=== PATIENT | male | born 1950 | race Caucasian/White ===

== ENCOUNTER → 2020-09-27 | Outpatient (CLI) | payer MEDICARE, MEDICAID ==
[~2020-09-27] MED LIST: AMLO-489 PO; ATEN-60 PO; DICL50TA2 PO; ENAL20TA8 PO; GLIP5TAB12 PO; HYDR25TA4 PO; METF500T PO; METO-158 PO; OMEP20CA74 OR; SIMV-8 PO; TAMS0.4C36 PO
== END | disposition home or self-care (01) ==
LOC: Rad HDHVI 07:58
PROVIDERS: ATTEND Internal Medicine Cardiovascular Disease
DX: I11.9 Hypertensive heart disease without heart failure (principal); R07.89 Other chest pain
CPT/HCPCS: 93306

== ENCOUNTER → 2020-10-01 | Outpatient (CLI) | payer MEDICARE, MEDICAID ==
[~2020-10-01] VITALS: Ht 177.8 cm; Wt 97.5 kg
[~2020-10-01] MED LIST changes: +ADENOSINE 82 MG in GIVE UN-DILUTED 0 ML IV ONE; +ADENOSINE 90 MG/30 ML INJ IV ONE
== END | disposition home or self-care (01) ==
LOC: Rad HDHVI 14:03
PROVIDERS: ATTEND Internal Medicine Cardiovascular Disease
DX: Z01.810 Encounter for preprocedural cardiovascular examination (principal); I10 Essential (primary) hypertension; I25.10 Atherosclerotic heart disease of native coronary artery without angina pectoris; E78.5 Hyperlipidemia, unspecified; E11.9 Type 2 diabetes mellitus without complications; J44.9 Chronic obstructive pulmonary disease, unspecified; F17.210 Nicotine dependence, cigarettes, uncomplicated
CPT/HCPCS: 78452; 93005; 96374; 96375; A9500; J0153

== ENCOUNTER → 2023-12-08 | Outpatient (CLI) | payer MEDICARE, MEDICAID ==
[~2023-12-08] MED LIST changes: -ADENOSINE 82 MG in GIVE UN-DILUTED 0 ML IV ONE; -ADENOSINE 90 MG/30 ML INJ IV ONE; -AMLO-489 PO; +AMLO1TAB22 PO; +ENAL1TAB48 PO; -ENAL20TA8 PO; -GLIP5TAB12 PO; +GLIP5TAB21 PO; -SIMV-8 PO; +SIMV20TA20 PO
== END | disposition home or self-care (01) ==
LOC: Rad HDHVI 13:46
PROVIDERS: ATTEND Internal Medicine Cardiovascular Disease
DX: I08.8 Other rheumatic multiple valve diseases (principal); I11.9 Hypertensive heart disease without heart failure; R06.02 Shortness of breath
CPT/HCPCS: 93306

== ENCOUNTER → 2023-12-20 | Outpatient (CLI) | payer MEDICARE, MEDICAID ==
[~2023-12-20] VITALS: Ht 177.8 cm; Wt 94.3 kg
[~2023-12-20] MED LIST changes: +ADENOSINE 79 MG in GIVE UN-DILUTED 0 ML IV ONE; +ADENOSINE 90 MG/30 ML INJ IV ONE
== END | disposition home or self-care (01) ==
LOC: Rad HDHVI 09:18
PROVIDERS: ATTEND Internal Medicine Cardiovascular Disease
DX: I49.3 Ventricular premature depolarization (principal); I49.1 Atrial premature depolarization; I10 Essential (primary) hypertension; R06.02 Shortness of breath; E78.5 Hyperlipidemia, unspecified; I25.10 Atherosclerotic heart disease of native coronary artery without angina pectoris; E11.9 Type 2 diabetes mellitus without complications; F17.210 Nicotine dependence, cigarettes, uncomplicated
CPT/HCPCS: 78452; 93005; 96374; 96375; A9500; J0153

== ENCOUNTER → 2024-01-31 | Outpatient (CLI) | payer MEDICARE, MEDICAID ==
[~2024-01-31] MED LIST changes: -ADENOSINE 79 MG in GIVE UN-DILUTED 0 ML IV ONE; -ADENOSINE 90 MG/30 ML INJ IV ONE; -TAMS0.4C36 PO; +TAMS0.4C39 PO
[2024-01-31 11:40] VITALS: BP 130/80; PULSE 80; RESP 18; O2SAT 94
[2024-01-31] MEDS: BUMETANIDE 2.5mg/10ml (0.25 mg/ml) INJ IV ONE (11:40)
[2024-01-31] MEDS: POTASSIUM CHL 20 Meq TABLET PO ONE ×2 (11:40→11:57)
[2024-01-31] MEDS: BUMETANIDE INJECTION 10 ML ONE (11:57)
[2024-01-31 12:30] VITALS: BP 131/71; PULSE 78; RESP 18; O2SAT 94
== END | disposition home or self-care (01) ==
LOC: CHF HDHVI 11:43
PROVIDERS: ATTEND Internal Medicine Cardiovascular Disease
DX: R60.9 Edema, unspecified (principal); I25.10 Atherosclerotic heart disease of native coronary artery without angina pectoris; I10 Essential (primary) hypertension; E78.5 Hyperlipidemia, unspecified; E11.9 Type 2 diabetes mellitus without complications; F17.210 Nicotine dependence, cigarettes, uncomplicated
CPT/HCPCS: 96374; G0463

== ENCOUNTER → 2024-02-21 | Outpatient (CLI) | payer MEDICARE, MEDICAID ==
[~2024-02-21] MED LIST changes: +ASPI-543 PO; +BUME2TAB5 PO; +DAPA1TAB4 PO; +FINA5TAB4 PO; +METF-370 PO; +POTA-180 PO; +ROSU20TA14 PO
[2024-02-21 10:40] VITALS: BP 109/69; PULSE 84; RESP 16; O2SAT 93
[2024-02-21 11:00] VITALS: BP 107/65; PULSE 84; RESP 18; O2SAT 91
== END | disposition home or self-care (01) ==
LOC: Rad HDHVI 10:37
PROVIDERS: ATTEND Internal Medicine Cardiovascular Disease
DX: Z01.811 Encounter for preprocedural respiratory examination (principal); I25.5 Ischemic cardiomyopathy; I50.23 Acute on chronic systolic (congestive) heart failure; R06.02 Shortness of breath; R07.89 Other chest pain
CPT/HCPCS: 71046; 93005; G0463

== ENCOUNTER 2024-02-24 06:58 | Day surgery (SDC) | payer MEDICARE, MEDICAID ==
[2024-02-21 13:01] LABS: Basophils # (auto) 0.1 10 ^3/uL (0-0.2); Eosinophils # (auto) 0.4 10 ^3/uL (0-0.8); Eosinophils % (auto) 3.2 % (0.0-7.0); Mean Corpuscular Volume 79.1 fL (80.0-100.0)
[2024-02-21 13:04] LABS: Basophils % (auto) 1.1 % (0.0-2.0); Hematocrit 40.6 % (41.0-53.0); Hemoglobin 13.8 g/dL (13.5-17.5); Lymphocytes # (auto) 3.5 10 ^3/uL (0.4-5.4); Lymphocytes % (auto) 31.1 % (10.0-50.0); Mean Corpuscular Hemoglobin 26.9 pg (28.0-32.0); Mean Corpuscular Hgb Conc. 34.1 g/dL (32.0-36.0); Monocytes # (auto) 0.7 10 ^3/uL (0-1.3); Monocytes % (auto) 6.2 % (0.0-12.0); Neutrophils # (auto) 6.6 10 ^3/uL (1.6-8.6); Neutrophils % (auto) 58.4 % (37.0-80.0); Platelet Count (auto) 312 10^3/uL (140-450); Red Blood Cells 5.13 10^6/uL (4.5-5.90); Red Cell Distribution Width 14.9 % (11.8-14.3); White Blood Cell 11.2 10^3/uL (4.4-10.8)
[2024-02-21 13:17] LABS: INR 1.1 (0.9-1.15); Partial Thromboplastin Time 27.9 SEC (24.5-34.5); Prothrombin Time 11.6 sec (9.3-11.8)
[2024-02-21 14:08] LABS: Alanine Aminotransferase 25 U/L (7-40); Albumin 4.7 g/dL (3.2-4.8); Alkaline Phosphatase 80 U/L (46-116); Anion Gap 8 (5-15); Aspartate Aminotransferase 17 U/L (13-40); BUN/Creatinine Ratio 12.7 (10.0-20.0); Bilirubin, Total 0.3 mg/dL (0.2-1.0); Blood Urea Nitrogen 16 mg/dL (9-23); Calcium 9.3 mg/dL (8.7-10.4); Carbon Dioxide 30 mmol/L (20-30); Chloride 103 mmol/L (98-107); Glucose 124 mg/dL (74-106); Potassium 4.4 mmol/L (3.5-5.1); Sodium 141 mmol/L (136-145)
[2024-02-21 14:09] LABS: Total Protein 7.1 g/dL (5.7-8.2)
[~2024-02-24] VITALS: Ht 177.8 cm; Wt 98.9 kg
[2024-02-24] VITALS (9 sets, daily range): BP systolic 116–150; BP diastolic 62–87; PULSE 77–88; RESP 11–26; TEMP 97.4; O2SAT 93–97
[~2024-02-24 06:58] MED LIST changes: -HYDR25TA4 PO; -METO-158 PO; -SIMV20TA20 PO
[2024-02-24] MEDS ORDERED: IOHEXOL 300 MG/ML 100ML BOTTLE IJ ONE (06:59)
[2024-02-24] MEDS ORDERED: HEPARIN IN NS 1000Units/500mL 1,500 ML ONE (07:27)
[2024-02-24] MEDS ORDERED: MIDAZOLAM HCL 2MG/2ML 2ml VIAL (1mg/ml) ONE (08:26)
[2024-02-24] MEDS ORDERED: SODIUM CHL 0.9% 50 ML ONE (08:26)
[2024-02-24] MEDS ORDERED: fentaNYL CITRATE 100 MCG/2 ML VL ONE (08:26)
[2024-02-24] MEDS ORDERED: ANGIOMAX 250 MG VIAL IV ONE (08:26)
[2024-02-24] MEDS ORDERED: LIDOCAINE 2%HCL (LOCAL ANESTH.) INJ 20ML MDV ONE (08:26)
[2024-02-24] MEDS ORDERED: CLOPIDOGREL BISULFATE 75 MG TAB ONE (09:31)
== END 2024-02-24 12:30 | disposition home or self-care (01) ==
LOC: CATH 06:58
PROVIDERS: ATTEND Internal Medicine Cardiovascular Disease
DX: R06.02 Shortness of breath (principal); I25.10 Atherosclerotic heart disease of native coronary artery without angina pectoris; F17.210 Nicotine dependence, cigarettes, uncomplicated; Z79.82 Long term (current) use of aspirin; Z88.8 Allergy status to other drugs, medicaments and biological substances; Z79.899 Other long term (current) drug therapy
CPT/HCPCS: 36415; 80053; 85025; 85610; 85730; 92972; 93460; C1760; C1761; C1769; C1874; C1894; C9602; J0583; J1644; J2250; J3010; J7030; Q9967; 99152

== ENCOUNTER → 2024-03-23 | Outpatient (CLI) | payer MEDICARE, MEDICAID | END | disposition home or self-care (01) | LOC: Rad HDHVI 07:59 | PROVIDERS: ATTEND Internal Medicine Cardiovascular Disease | DX: I10 Essential (primary) hypertension (principal); R07.9 Chest pain, unspecified | CPT/HCPCS: 93306 ==

== ENCOUNTER → 2024-09-13 | Outpatient (CLI) | payer MEDICARE, MEDICAID ==
[~2024-09-13] VITALS: Ht 177.8 cm; Wt 90.7 kg
[~2024-09-13] MED LIST changes: +ADENOSINE 76 MG in GIVE UN-DILUTED 0 ML IV ONE; +ADENOSINE 90 MG/30 ML INJ IV ONE
== END | disposition home or self-care (01) ==
LOC: Rad HDHVI 08:21
PROVIDERS: ATTEND Internal Medicine Cardiovascular Disease
DX: I49.1 Atrial premature depolarization (principal); I49.3 Ventricular premature depolarization; I25.10 Atherosclerotic heart disease of native coronary artery without angina pectoris; I11.0 Hypertensive heart disease with heart failure; I50.43 Acute on chronic combined systolic (congestive) and diastolic (congestive) heart failure; E11.9 Type 2 diabetes mellitus without complications; J44.9 Chronic obstructive pulmonary disease, unspecified; I25.2 Old myocardial infarction; I25.5 Ischemic cardiomyopathy; E78.00 Pure hypercholesterolemia, unspecified; R06.02 Shortness of breath; Z72.0 Tobacco use
CPT/HCPCS: 78452; 93017; A9500; J0153; 93005; 96374; 96375